=== PATIENT | female | born 1950 | race African-American/Black ===

== ENCOUNTER 2018-02-19 09:52 | Emergency (ER) | payer MEDICARE, MEDICAID ==
[~2018-02-19] VITALS: Ht 154.9 cm; Wt 70.0 kg
[2018-02-19 10:01] VITALS: BP 115/83
[2018-02-19] MEDS ORDERED: DEXAMETHASONE 10 MG/ML VIAL IM ONE (12:15)
== END 2018-02-19 12:35 | disposition home or self-care (01) ==
LOC: ER 09:52
DX: M54.89 Other dorsalgia (principal); M25.511 Pain in right shoulder; I10 Essential (primary) hypertension; F12.10 Cannabis abuse, uncomplicated; Z90.710 Acquired absence of both cervix and uterus; V43.52XA Car driver injured in collision with other type car in traffic accident, initial encounter; Y93.89 Activity, other specified; Y92.488 Other paved roadways as the place of occurrence of the external cause
CPT/HCPCS: 96372; 99283; J1100

== ENCOUNTER 2018-08-01 15:45 | Emergency (ER) | payer MEDICARE, MEDICAID ==
[~2018-08-01] VITALS: Ht 157.5 cm; Wt 66.0 kg
[2018-08-01 15:47] VITALS: BP 141/83
[2018-08-01] MEDS ORDERED: ACETAMINOPHEN 325MG TABLET PO ONE (20:15)
== END 2018-08-01 20:41 | disposition home or self-care (01) ==
LOC: ER 15:45
DX: M17.11 Unilateral primary osteoarthritis, right knee (principal); I10 Essential (primary) hypertension
CPT/HCPCS: 73562; 99283